=== PATIENT | male | born 1950 | race Caucasian/White ===

== ENCOUNTER 2024-10-19 07:30 | Emergency (ER) | payer MEDICARE ==
[~2024-10-19] VITALS: Ht 188 cm; Wt 82.3 kg
[2024-10-19 07:32] VITALS: BP 169/98; PULSE 77; RESP 14; TEMP 97.7; O2SAT 99
[2024-10-19] MEDS ORDERED: SULF1TAB49 PO (08:07)
[2024-10-19] MEDS: LIDOcaine 1% W/epiNEPHrine 1:100,000 20ml vial SQ ONE (08:12)
== END 2024-10-19 08:21 | disposition home or self-care (01) ==
LOC: ER 07:31
DX: L02.212 Cutaneous abscess of back [any part, except buttock and flank] (principal)
CPT/HCPCS: 10060; 99282; A6402; Z7610; A6449

== ENCOUNTER 2024-12-06 16:07 | Emergency (ER) | payer MEDICARE ==
[~2024-12-06] VITALS: Ht 188 cm; Wt 85.9 kg
[2024-12-06 16:09] VITALS: BP 152/81; PULSE 16; RESP 16; O2SAT 99
[2024-12-06 17:44] VITALS: TEMP 89
== END 2024-12-06 17:46 | disposition home or self-care (01) ==
LOC: ER 16:08
DX: T81.89XA Other complications of procedures, not elsewhere classified, initial encounter (principal); Z88.5 Allergy status to narcotic agent; Z96.652 Presence of left artificial knee joint
CPT/HCPCS: 99281; A6223